=== PATIENT | female | born 1970 | race Caucasian/White ===

== ENCOUNTER 2018-03-16 06:10 | Day surgery (SDC) | payer OTHER ==
[~2018-03-16] VITALS: Ht 160 cm; Wt 54.4 kg
[2018-03-16] MEDS ORDERED: IBUPROFEN 800 MG TAB PO PRN (06:40)
[2018-03-16] MEDS ORDERED: ONDANSETRON 4 MG/2 ML VIAL IVP PRN (06:40)
[2018-03-16] MEDS ORDERED: ACETAMINOPHEN/CODEINE 300/30MG 1 TAB PO PRN (06:40)
[2018-03-16] MEDS ORDERED: MORPHINE SULFATE 4 MG/ML SYR IM/IVP PRN (06:40)
[2018-03-16] MEDS ORDERED: FERR-252 PO (07:19)
[2018-03-16] MEDS ORDERED: ALBU0.0912 INH (07:22)
[2018-03-16] MEDS ORDERED: fentaNYL 0.05 MG/ML VIAL ONE (08:44)
== END 2018-03-16 10:33 | disposition home or self-care (01) ==
LOC: MDS 06:10 → MMU 06:11 → MDS 10:33
PROVIDERS: ATTEND Obstetrics & Gynecology
DX: N92.1 Excessive and frequent menstruation with irregular cycle (principal); Z98.890 Other specified postprocedural states; Z90.49 Acquired absence of other specified parts of digestive tract; J45.909 Unspecified asthma, uncomplicated; Z79.899 Other long term (current) drug therapy
CPT/HCPCS: 58120; 88305; J3010; J7120